=== PATIENT | female | born 1975 | race Caucasian/White ===

== ENCOUNTER 2016-04-07 19:26 | Emergency (ER) | payer MEDICAID ==
[2016-04-07] MEDS ORDERED: SODIUM CHLORIDE 0.9% 50 ML IV ONE (20:50)
[2016-04-07] MEDS ORDERED: ONDANSETRON 4 MG VIAL ONE ×2 (20:50→21:33)
[2016-04-07] MEDS ORDERED: SODIUM CHLORIDE 0.9% 1,000 ML ONE (20:50)
[2016-04-07] MEDS ORDERED: KETOROLAC 30 MG/ML VIAL ONE (20:50)
[2016-04-07] MEDS ORDERED: FAMOTIDINE 20 MG INJ ONE (20:51)
== END 2016-04-07 21:54 | disposition home or self-care (01) ==
LOC: ER 19:26
CPT/HCPCS: 36415; 74176; 80053; 81003; 83690; 85025; 96361; 96374; 96375; 96376